=== PATIENT | male | born 1995 | race Caucasian/White ===

== ENCOUNTER 2024-02-19 11:01 | Emergency (ER) | payer OTHER ==
[~2024-02-19] VITALS: Ht 170.2 cm; Wt 88.0 kg
[2024-02-19 11:04] VITALS: O2SAT 98
[2024-02-19 11:48] VITALS: BP 136/76; PULSE 69; RESP 16; TEMP 36.83628; O2SAT 98
[2024-02-19] MEDS: KETOROLAC 30MG/ML VIAL IM ONE (11:51)
== END 2024-02-19 11:50 | disposition home or self-care (01) ==
LOC: ER 11:01
DX: M54.50 Low back pain, unspecified (principal)
CPT/HCPCS: 99283; 96372; J1885

== ENCOUNTER 2025-01-02 09:53 | Emergency (ER) | payer OTHER ==
[~2025-01-02] VITALS: Ht 170.2 cm; Wt 86.0 kg
[2025-01-02 09:56] VITALS: O2SAT 98
[2025-01-02 10:51] LABS: BASOPHILS % 0.6 % (0.0-2.0); EOSINOPHILS % 2.0 % (0.0-5.0); HEMATOCRIT. 46.4 % (42.0-52.0); HEMOGLOBIN. 15.2 g/dL (14.0-18.0); LYMPHOCYTES % 11.2 % (20.0-50.0); MEAN PLATELET VOLUME 9.0 fl (7.4-10.4); MONOCYTES % 5.9 % (2.0-8.0); NEUTROPHILS % 80.3 % (40.0-76.0); PLATELET 267 x1000/uL (130-400); RED BLOOD CELL COUNT 5.73 mill/uL (4.7-6.1); RED CELL DISTRIBUTION WIDTH 13.2 % (11.6-14.6)
[2025-01-02 11:06] LABS: TROPONIN I HIGH SENSITIVITY 4 ng/L (3.0-53)
[2025-01-02 11:08] LABS: CREATININE 1.2 mg/dL (0.6-1.3); UREA NITROGEN BLOOD 17 mg/dL (9-23)
[2025-01-02 11:55] VITALS: BP 110/60; PULSE 72; RESP 18; TEMP 36.8; O2SAT 99
== END 2025-01-02 12:00 | disposition home or self-care (01) ==
LOC: ER 09:53
DX: R55 Syncope and collapse (principal); R42 Dizziness and giddiness; Z87.891 Personal history of nicotine dependence
CPT/HCPCS: 36415; 71045; 80048; 84484; 85025; 85379; 93005; 99285

== ENCOUNTER 2025-03-23 20:47 | Emergency (ER) | payer OTHER ==
[~2025-03-23] VITALS: Ht 167.6 cm; Wt 87.4 kg
[2025-03-23 20:49] VITALS: O2SAT 100
[2025-03-23 21:07] VITALS: BP 131/76; PULSE 68; RESP 18; TEMP 36.8; O2SAT 100
[2025-03-23] MEDS: TETRACAINE 0.5% OPHTH DROPS 4ML LEFTEYE ONE (23:13)
[2025-03-23] MEDS ORDERED: TETR15DR17 OP (23:13)
== END 2025-03-24 00:20 | disposition home or self-care (01) ==
LOC: ER 20:47
DX: T15.91XA Foreign body on external eye, part unspecified, right eye, initial encounter (principal); W44.9XXA Unspecified foreign body entering into or through a natural orifice, initial encounter
CPT/HCPCS: 99283